=== PATIENT | female | born 1935 | race Caucasian/White ===

== ENCOUNTER 2017-03-25 20:09 | Emergency (ER) | payer MEDICARE ==
[~2017-03-25] VITALS: Ht 167.6 cm; Wt 98.0 kg
[~2017-03-25 20:09] MED LIST: AMIODARONE200 MG PO; CARVEDILOL25 MG PO; ELIQUIS5 MG PO; IRON; LANOXIN0.25 MG OR; LEVOTHYROXIN100 MCG PO; LOPRESSOR25 MG OR; LOPRESSOR50 MG OR; LORTAB5 PO; METO25TAB PO; METOPROLOL25 M1 OR; SPIRONOLACT25 MG PO; SYNTHROID50 MCG OR; SYNTHROID75 MCG PO
[2017-03-25] MEDS ORDERED: SYNTHROID125 MCG PO (20:23)
[2017-03-25] MEDS ORDERED: SERTRALINE50 MG PO (20:23)
[2017-03-25] MEDS ORDERED: AMIODARONE200 MG PO (20:27)
[2017-03-25] MEDS ORDERED: ULTRAM50 M1 PO (21:45)
[2017-03-25 21:58] VITALS: BP 161/67
== END 2017-03-25 22:18 | disposition home or self-care (01) ==
LOC: ED 20:09
DX: M25.551 Pain in right hip (principal); W19.XXXA Unspecified fall, initial encounter; Y92.009 Unspecified place in unspecified non-institutional (private) residence as the place of occurrence of the external cause

== ENCOUNTER 2020-10-05 13:52 | Inpatient (IN) | payer MEDICARE ==
[2020-10-05] VITALS (16 sets, daily range): BP systolic 73–106; BP diastolic 40–85
[~2020-10-05 13:52] MED LIST changes: +SERTRALINE50 MG PO; +SYNTHROID125 MCG PO; +ULTRAM50 M1 PO
--- NOTE | 2020-10-05 13:53 | NUR ---
PT WHEELED TO ROOM # 12 FOR BEDSIDE TRIAGE.
--- NOTE | 2020-10-05 14:04 | NUR ---
PPOC DISCUSSED WITH PATIENT, PATIENTS FRIEND REMIANS BEDSIDE WITH HER. PATIENT STATES UNDERSTANDING OF CURRENT NEED FOR Tx AND AGREES.
[2020-10-05 14:30] LABS: HEMATOCRIT 44.8 % (37.0-47.0); HEMOGLOBIN 14.1 g/dl (12.0-16.0); IMMATURE GRANULOCYTES 0.5 % (0.0-5.0); MEAN CELL VOLUME 94.7 fL CALC (80.0-100.0); MEAN CORPUSCULAR HGB 29.8 pG CALC (26.0-32.0); MEAN CORPUSCULAR HGB CONC 31.5 g/dL CAL (32.0-36.0); NEUT# 3.83 thou/uL (2.00-7.15); RED BLOOD COUNT 4.73 mill/uL (4.20-5.60); RED CELL DISTRI WIDTH 14.5 % (11.5-15.5)
--- NOTE | 2020-10-05 14:39 | NUR ---
Rt PRESENT BEDSIDE FOR ABG COLLECTION
[2020-10-05 14:42] LABS: ALBUMIN 4.4 g/dL (3.2-5.0); ALKALINE PHOSPHATASE 51 u/l (38-126); ANION GAP 14 (6-22 (CALC)); BUN 26 mg/dL (8-23); BUN/CREATININE RATIO 32 (12-20 (CALC)); CARBON DIOXIDE 25 mmol/l (22-30); CHLORIDE 104 mmol/l (95-108); CREATININE 0.8 mg/dL (0.5-1.0); GFR > 60 ML/MIN (>=60 (CALC)); GFR FOR AFR.AMER. > 60 ML/MIN (>=60 (CALC)); LIPASE 98 u/l (23-300); POTASSIUM 4.4 mmol/l (3.5-5.1); SGOT/AST 29 u/l (9-36); SODIUM 137 mmol/l (137-146); TOTAL PROTEIN 7.9 g/dL (6.3-8.2)
[2020-10-05 14:53] LABS: D-DIMER 2.36 mg/L (0.19-0.60)
[2020-10-05 14:58] LABS: ACT PARTIAL THROMBO TIME 22.9 SECONDS (20.0-32.5); INTERNATIONAL NORMALIZED RATIO 1.2 RATIO (0.7-1.3); PROTHROMBIN TIME 12.1 SECONDS (9.0-12.5)
[2020-10-05 15:17] LABS: BILIRUBIN, TOTAL 0.9 mg/dL (0.0-1.4)
[2020-10-05 17:15] LABS: URINE BILIRUBIN - DIPSTICK NEGATIVE (NEGATIVE); URINE BLOOD DIPSTICK NEGATIVE (NEGATIVE); URINE COLOR YELLOW; URINE GLUCOSE - DIPSTICK NEGATIVE (NEGATIVE); URINE KETONE NEGATIVE (NEGATIVE); URINE LEUK ESTERASE NEGATIVE (NEGATIVE); URINE PROTEIN - DIPSTICK NEGATIVE (NEG-TRACE); URINE SPECIFIC GRAVITY 1.015; URINE UROBILINOGEN - DIPSTICK 0.2 E.U./dL (0.2)
[2020-10-05 17:20] LABS: URINE NITRITE - DIPSTICK NEGATIVE (Negative)
[2020-10-05] MEDS ORDERED: MAGNESIUM250 M1 PO (18:22)
[2020-10-05] MEDS ORDERED: GABAPENTIN100 MG PO (18:23)
[2020-10-05] MEDS ORDERED: ROPINIROLE1 MG PO (18:23)
[2020-10-05] MEDS ORDERED: SINGULAIR10 MG PO (18:24)
--- NOTE | 2020-10-05 18:32 | NUR ---
PATIENT BELONGING LIST COMPLETED/COSIGNED
--- NOTE | 2020-10-05 18:36 | NUR ---
PATIENT OFFERED JUICE/CRACKS FOR SNACK PER REQUEST. PATIENT TOERATED WELL
--- NOTE | 2020-10-05 18:45 | NUR ---
REPORT CALLED TO ICU, REWEAVER NURSE AT THIS TIME
--- NOTE | 2020-10-05 18:46 | NUR ---
REPORT TO SONIA GOLDMAN-SECURITY GUARD SUPERVISOR TO TRANSPORT TO FLOOR
--- NOTE | 2020-10-05 19:08 | NUR ---
to icu via stretcher
--- NOTE | 2020-10-05 19:08 | NUR ---
84 yr old white female admitted icu5 per stretcher from er. amb few steps with assist x1 to bed. [place]. pt requires walker @ home. bed weight obtained. phototypesetting equipment monitor shows a flutter pvcs hr 130. #20 saline lock lac. history obtained per pt. oriented to room. fall precautions initiated. purewick cath in place.
--- NOTE | 2020-10-05 20:00 | NUR ---
supper meal provided per request.
--- NOTE | 2020-10-05 22:00 | NUR ---
campus monitor shows a flutter pvcs hr 72-130.
[2020-10-06] VITALS (39 sets, daily range): BP systolic 68–136; BP diastolic 47–88
--- NOTE | 2020-10-06 00:30 | NUR ---
lab here. blood drawn.
--- NOTE | 2020-10-06 02:00 | NUR ---
resting quietly. resps even & unlabored. cardic monitor shows a flutter pvcs hr 65-130.
--- NOTE | 2020-10-06 04:00 | NUR ---
awake. watching tv. no c/o voiced.
--- NOTE | 2020-10-06 06:07 | NUR ---
lab here. blood drawn.
[2020-10-06 06:44] LABS: HEMATOCRIT 42.4 % (37.0-47.0); HEMOGLOBIN 13.2 g/dl (12.0-16.0); MEAN CELL VOLUME 96.1 fL CALC (80.0-100.0); MEAN CORPUSCULAR HGB 29.9 pG CALC (26.0-32.0); MEAN CORPUSCULAR HGB CONC 31.1 g/dL CAL (32.0-36.0); RED BLOOD COUNT 4.41 mill/uL (4.20-5.60); RED CELL DISTRI WIDTH 14.4 % (11.5-15.5)
--- NOTE | 2020-10-06 07:20 | NUR ---
pt awake in bed; no apparent distress noted; pt offers no complaints; assessment completed at this time; pt alert and oriented; pt denies pain; no n/v noted; resp even and unlabored; lungs clear; skin color wnl; hr irreg; wk pedal pulses; no edema noted; aflutter/ pvc on monitor; abd soft with bs present; no bm noted per sql report writer; purewick intact and patent with clear yellow urine noted; #20 flushed to lac; no redness or edema noted at site; plan of care/am meds explained; call light within reach; will conitnue to monitor
[2020-10-06 07:22] LABS: ANION GAP 8 (6-22 (CALC)); BUN 21 mg/dL (8-23); BUN/CREATININE RATIO 29 (12-20 (CALC)); CALCULATED LDLCHOLESTEROL 100 mg/dL (62-129 (CALC)); CARBON DIOXIDE 27 mmol/l (22-30); CHLORIDE 107 mmol/l (95-108); CREATININE 0.7 mg/dL (0.5-1.0); GFR > 60 ML/MIN (>=60 (CALC)); GFR FOR AFR.AMER. > 60 ML/MIN (>=60 (CALC)); HDL CHOLESTEROL 30 mg/dL (>=40); MAGNESIUM 1.8 mg/dL (1.6-2.3); SODIUM 137 mmol/l (137-146); TOTAL CHOLESTEROL 151 mg/dl (0-199); TOTAL TRIGLYCERIDES 107 mg/dl (30-149); VLDL CHOLESTROL 21 mg/dl (0-48 (CALC))
--- NOTE | 2020-10-06 08:57 | NUR ---
Dr Camp present at bedside to assess pt and discuss plan of care
--- NOTE | 2020-10-06 10:05 | NUR ---
pt awake in bed; offers no complaint; iv intact and patent; amiodarone gtt at 1mg/min; no redness or edema noted at site; aflutter on monitor; purewick intact; call light within reach; will continue to monitor
--- NOTE | 2020-10-06 12:02 | NUR ---
resting in bed on left side; hypotension noted; bp reassessed and MD made aware; o2 sat noted at 88%; o2 per nc placed at 2L; purewick intact; aflutter on monitor; call light within reach; will conitnue to monitor
--- NOTE | 2020-10-06 13:04 | NUR ---
Dr Camp present at bedside to assess pt and discuss plan of care; pt noted sr with pvc on monitor; RT notified for EKG
--- NOTE | 2020-10-06 13:30 | NUR ---
Dr Camp informed of persistent hypotension; orders received; amiodarone gtt to continue
--- NOTE | 2020-10-06 14:15 | NUR ---
pt awake in bed; no apparent distress noted; pt offers no complaints; iv intact and patent; [place] to gravity; st/pvc on monitor; air mattress; PT present at bedside; pt deny needs; call light within reach; will continue to monitor
--- NOTE | 2020-10-06 16:15 | NUR ---
awake in bed; assisted to bsc then recliner; no apparent distress noted; pt offers no complaints; iv intact and patent; amiodarone gtt at 0.5mg/hr; o2 per nc; aflutter on monitor; call light within reach; will continue to monitor
--- NOTE | 2020-10-06 18:19 | NUR ---
awake in recliner; assisted back to bed as per request; no apparent distress noted; iv intact and patent; amiodarone gtt cont at 0.5mg/min; aflutter on monitor; call light within reach;
--- NOTE | 2020-10-06 19:15 | NUR ---
awakens easily. denies distress. o2 cont per nc. hemodialysis charge nurse shows a flutter pvcs hr 110. #22 lfa saline lock. #22 lt hand. ns infusing @ 80cchr. amiodarone gtt infusing @ 0.5mg/min. po fluids taken well. purewick cath in place. urine clear yellow. fall precautions cont.
--- NOTE | 2020-10-06 22:00 | NUR ---
eyes closed. no distress. teletypesetter monitor shows a flutter pvcs hr 110
[2020-10-07] VITALS (22 sets, daily range): BP systolic 70–121; BP diastolic 51–82
--- NOTE | 2020-10-07 00:01 | NUR ---
eyes closed. no apparent distress. dental surgery doctor shows a flutter pvcs hr 108.
--- NOTE | 2020-10-07 01:30 | NUR ---
awake. c/o insomnia & h/a. sonata 5mg po & tylenol 650mg po given per request.
--- NOTE | 2020-10-07 04:00 | NUR ---
awake. no c/o voiced. lunchroom monitor shows a flutter pvcs hr 108.
--- NOTE | 2020-10-07 05:18 | NUR ---
lab here. blood drawn.
[2020-10-07 05:43] LABS: HEMATOCRIT 43.1 % (37.0-47.0); HEMOGLOBIN 13.1 g/dl (12.0-16.0); MEAN CELL VOLUME 98.4 fL CALC (80.0-100.0); MEAN CORPUSCULAR HGB 29.9 pG CALC (26.0-32.0); MEAN CORPUSCULAR HGB CONC 30.4 g/dL CAL (32.0-36.0); RED BLOOD COUNT 4.38 mill/uL (4.20-5.60); RED CELL DISTRI WIDTH 14.6 % (11.5-15.5)
[2020-10-07 05:59] LABS: ALKALINE PHOSPHATASE 40 u/l (38-126); ANION GAP 10 (6-22 (CALC)); BILIRUBIN, TOTAL 0.6 mg/dL (0.0-1.4); BUN 20 mg/dL (8-23); BUN/CREATININE RATIO 28 (12-20 (CALC)); CARBON DIOXIDE 24 mmol/l (22-30); CHLORIDE 108 mmol/l (95-108); CREATININE 0.7 mg/dL (0.5-1.0); GFR > 60 ML/MIN (>=60 (CALC)); GFR FOR AFR.AMER. > 60 ML/MIN (>=60 (CALC)); POTASSIUM 4.2 mmol/l (3.5-5.1); SGOT/AST 24 u/l (9-36); SODIUM 138 mmol/l (137-146)
--- NOTE | 2020-10-07 06:00 | NUR ---
awakens easily. payment poster shows a flutter pvcs hr 86.
[2020-10-07 06:03] LABS: ALBUMIN 3.4 g/dL (3.2-5.0); TOTAL PROTEIN 6.3 g/dL (6.3-8.2)
--- NOTE | 2020-10-07 07:25 | NUR ---
pt resting in bed with eyes closed; no apparent distress noted; easily aroused; pt offers no complaints; assessment completed at this time; pt alert and oriented; denies pain at current; no n/v noted; resp even and unlabored; lungs clear; skin color wnl; o2 per nc at 2L; hr reg; wk pulses; no edema noted; aflutter on monitor; abd soft with bs present; no bm noted per residential mortgage underwriter; purewick intact draining clear yellow urine; #22 to lh patent with amiodarone gtt infusing at 0.5mg/hr; ns at 80cc/hr; #22 saline locked to lfa; no redness or edema noted at sites; plan of care/ am meds explained; call light within reach; will continue to monitor
--- NOTE | 2020-10-07 08:07 | NUR ---
awake in bed eating breakfast; no apparent distress noted; iv intact; amiodarone gtt cont at 0.5mg/hr; purewick intact; aflutter on monitor; call light within reach; will continue to monitor
--- NOTE | 2020-10-07 09:06 | NUR ---
Dr Camp present at bedside to assess pt and discuss plan of care
--- NOTE | 2020-10-07 10:09 | NUR ---
pt awake in bed; no apparent distress noted; pt offers no complaints; iv intact and patent; amiodarone gtt completed; purewick intact and maintained; aflutter on monitor; pt deny needs; call light within reach; will continue to monitor
--- NOTE | 2020-10-07 12:10 | NUR ---
awake in bed eating lunch; no apparent distress noted; pt offers no complaints; iv intact and patent; no redness or edema noted at site; ra; aflutter on monitor; purewick remains intact; call light within reach; will continue to monitor
--- NOTE | 2020-10-07 13:05 | NUR ---
visitor present at bedside
--- NOTE | 2020-10-07 14:00 | NUR ---
assist to bsc then to recliner; pt max assist; sob on exertion noted; pt offers no complaints; iv intact and patent; no redness or edema noted at site; aflutter on monitor; call light within reach; will continue to monitor
--- NOTE | 2020-10-07 16:01 | NUR ---
awake in recliner; pt offers no complaints; iv intact and patent; no redness or edema noted at site; aflutter on monitor; call light within reach; will continue to monitor
--- NOTE | 2020-10-07 17:58 | NUR ---
pt awake in recliner eating dinner; offers no complaints; iv intact and patent; no redness or edema noted; aflutter on monitor; call light within reach; call light within reach
--- NOTE | 2020-10-07 20:25 | NUR ---
PATIENT IS AWAKE, ORIENTED X4. COMPLAINS OF RIGHT EAR PAIN AND HEADACHE, WILL PROVIDE TYLENOL. NURSE ASSESSMENT PERFORMED. SELF REPOSITIONS. HAS A PUREWICK IN PLACE AND BSC, URINE DARK YELLOW/CLEAR. REMOVED LFA 22 G DUE TO PATIENT COMPLAINS OF PAIN UPO FLUSHING, LEFT HAND 22 INTACT, NS INFUSING AT 20 ML/HR. PATIENT BALE TO SWALLOW HER MEDICATIONS WITHOUT DIFFICULTY. ON RA, O2 SAT 95%, DOES HAVE NC 2 L/MIN AT BEDSIDE OF NEEDED, NO SOB NOTED. HR 70-80'S, ATRIAL FLUTTER, RESP 18. POC FOR TONIGHT DISCUSSED, PATIENT UNDERSTANDS AND AGREES. CALL LIGHT WITHIN REACH.
--- NOTE | 2020-10-07 22:07 | NUR ---
SONATA FOR SLEEP PROVIDED PER REQUEST, BED PAD CHANGED DUE TO SOME INCONTNENCE, PUREWICK INTACT. WARM BLANKET PROVEVED. CALL LIGHT WITHIN REACH.
[2020-10-08] VITALS (13 sets, daily range): BP systolic 72–137; BP diastolic 54–97
--- NOTE | 2020-10-08 00:24 | NUR ---
PATIENT LAYS ON HER LEFT SIDE ON 2 L/MIN NC, O2 SAT 97%. RESTS WITH EYES CLOSED.
--- NOTE | 2020-10-08 04:55 | NUR ---
PATIENT RESTS WITH EYES CLOSED. NO ACUTE DISTRESS SHOWN. REMAINS ON 2 L/MIN NC. O2 SATS 97%. CALL LIGHT WITHIN REACH.
--- NOTE | 2020-10-08 06:11 | NUR ---
PATIENT AWAKENS EASILY WHEN SPOKEN TO, ABLE TO SWALLOW HER SYNTHROID WITHOUT DIFFICULTY, NEW BAG IV NS INFUSING NOW. NO COMPLAINTS OR NEEDS AT THIS TIME. CLAL LIGHT WITHIN REACH.
--- NOTE | 2020-10-08 07:19 | NUR ---
pt awake in bed; no apparent distress noted; pt offers no complaints at this time; assessment completed; pt alert and oriented; denies pain; no n/v noted; resp even and unlabored; lungs clear; skin color wnl; o2 per nc at 2L; hr irreg; weak pedal pulses; no edema noted; aflutter on monitor; abd soft with bs present; no bm noted per creative writer; purewick intact draining clear yellow urine; #22 patent to lh with ivf infusing without complication; no redness or edema noted at site; plan of care/ am meds explained; call light within reach; will continue to monitor
--- NOTE | 2020-10-08 08:08 | NUR ---
awake in bed; offers no complaints; eating breakfast; aflutter on monitor; call light within reach; will continue to monitor
[2020-10-08 09:39] LABS: ANION GAP 7 (6-22 (CALC)); BUN 22 mg/dL (8-23); BUN/CREATININE RATIO 23 (12-20 (CALC)); CARBON DIOXIDE 27 mmol/l (22-30); CHLORIDE 107 mmol/l (95-108); CREATININE 0.9 mg/dL (0.5-1.0); GFR 59 ML/MIN (>=60 (CALC)); GFR FOR AFR.AMER. > 60 ML/MIN (>=60 (CALC)); MAGNESIUM 1.7 mg/dL (1.6-2.3); POTASSIUM 3.6 mmol/l (3.5-5.1); SODIUM 138 mmol/l (137-146)
--- NOTE | 2020-10-08 09:40 | NUR ---
Dr Camp present at bedside to assess to pt and discuss plan of care
--- NOTE | 2020-10-08 10:15 | NUR ---
pt assist to recliner per staff; exertional sob noted; ra; aflutter on monitor; iv intact and patent; call light within reach; will continue to monitor
--- NOTE | 2020-10-08 12:05 | NUR ---
awake in chair; offers no complaits; no apparent distress noted; iv intact and patent; aflutter on monitor; call light within reach; will continue to monitor
--- NOTE | 2020-10-08 14:06 | NUR ---
pt awake in bed; no apparent distress noted; ra; aflutter on monitor; iv intact and patent; call light within reach; will continue to monitor
--- NOTE | 2020-10-08 16:20 | NUR ---
pt awake in recliner; offers no complaints; iv intact and patent; no redness or edema noted at site; aflutter on monitor; call light within reach; will continue to monitor
--- NOTE | 2020-10-08 18:20 | NUR ---
pt awake in bed in recliner; no apparent distress noted; pt offers no complaints; iv intact and patent; no redness or edema noted at site; aflutter on monitor; call light within reach
--- NOTE | 2020-10-08 19:46 | NUR ---
PATIENT ASSISTED FROM BSC TO BED, DOES HAVE SLOW, UNSTEADY GAIT. DOES BECOME SOB WITH WALKING TO BED. HAD A MEDIUM/FORMED/BROWN BM MIXED WITH URINE. LAYS IN [place]'S POSITION. ALERT AND ORIENTED X4. ON RA, O2 SAT WAS 80'S WHEN WALKING TO BED AND QUICKLY RECOVERED TO 97%. NURSE ASSESSMENT PERFOMED. LEFT HAND IV INTACT, NS INFUSING AT 20 ML/HR. SELF REPOSITIONS, PULLS SELF UP. PUREWICK PLACED BACK. REQUESTS TO HAVE MEDICATIONS GIVEN AROUND 2230 TONIGHT WITH SLEEPING MEDICATION. HR 90'S TO LOW 100'S WITH EXERTION, ATRIAL FLUTTER. BP WNL. CALL LIGHT WITHIN REACH. WATER AT BEDSIDE.
--- NOTE | 2020-10-08 22:29 | NUR ---
PATIENT ABLE TO SWALLOW HER MEDIACTIONS WITHOUT DIFFICULTY, WATCHES TV, TALKS ABOUT TV SHOWS SHE WATCHES. NO ACUTE DISTRESS SHOWN. CALL LIGHT WITHIN RECH.
--- NOTE | 2020-10-08 23:08 | NUR ---
PATIWNT REQUESTS FOR NASAL CANNULA TO BE PLACED DUE TO SOB, SHE DOES HAVE WHEEZING PRESENT. PIRE WICK REPLACED DUE TO LEAKING ON TO PAD. PERICARE PROVIDED.
--- NOTE | 2020-10-08 23:17 | NUR ---
DR ROTHMAN NOTIFIED OF WHEEZING AND SOB, NEW ORDERS GIVEN FOR X1 IV DOSE OF LASIX 20 MG AND IV FLUIDS TO BE AT [facility].
--- NOTE | 2020-10-08 23:28 | NUR ---
LASIX 20 MG GIVEN, WILL CONTINUE TO MONITOR.
[2020-10-09] VITALS (22 sets, daily range): BP systolic 74–117; BP diastolic 48–78
--- NOTE | 2020-10-09 02:12 | NUR ---
PATINT RESTS WITH EYES CLOSED. NO ACUTE DISTRESS SHOWN, ON 2 L/MIN NC, O2 SAT 99%. CALL LIGHT WITHIN REACH.
--- NOTE | 2020-10-09 06:16 | NUR ---
PATIENT ABLE TO SWALLOW HER SYNTHROID THIS MORNING, LAYS ON HER LEFT SIDE. NO ACUTE DISTRESS SHOWN, NO NEEDS O COMPLAINTS AT THIS TIME. CARL LIGHT WITHIN RECH.
--- NOTE | 2020-10-09 07:10 | NUR ---
REPORT RECEIVED FROM JONES HATCH.
--- NOTE | 2020-10-09 07:32 | NUR ---
PT RESTING IN BED ON LEFT SIDE WITH EYES CLOSED AND NO SIGNS OF DISTRESS; AWAKENS TO VERBAL STIMULI; STATES, "I AM TIRED." DENIES PAIN. RESPIRATIONS EVEN AND UNLABORED ON OXYGEN 2L VIA NC; 91% SPO2; EXPIRATORY WHEEZING THROUGHOUT LUNG DUEÑAS. PURWIK CATHETER SUCTIONING CLEAR YELLOW URINE. BP 82/56 HR 104. POC REVIEWED; PT ENCOURAGED TO VERBALIZE CONCERNS; STATES UNDERSTANDING AND REMAINS SLEEPY WITH EYES CLOSED. SAFETY MEASURES IN PLACE. CALL LIGHT WITHIN REACH.
--- NOTE | 2020-10-09 09:17 | NUR ---
WALK TEST COMPLETED; PT SOB WITH EXERTION; SPO2 DECREASES TO 84% WHEN AMBULATING ON ROOM AIR. PURWIK REMOVED AND ASSISTED PT WITH CRISSY CARE; REPOSITIONED INTO BEDSIDE CHAIR WITH BLE ELEVATED; OXYGEN REPLACED AT 2L VIA NC AND SPO2 RECOVERED TO 96%. ORTHOSTATIC BLOOD PRESSURES ARE NEGATIVE.
--- NOTE | 2020-10-09 09:45 | NUR ---
ASSISTED TO BSC FOR VOID AFTER LASIX ADMINSITERED IV; PT HAD INCONTINENCE WHEN STANDING AND TURNING ONTO BSC. PURWIK APPLIED WHILE PT IS SITTING UP IN CHAIR DUE TO FREQUENCY AFTER LASIX.
--- NOTE | 2020-10-09 12:43 | NUR ---
RT AT BEDSIDE FOR BREATHING TREATMENT.
--- NOTE | 2020-10-09 14:34 | NUR ---
VISITOR AT BEDSIDE FOR 30 MINUTES. PT ASSISTED BACK INTO BED; LARGE AMOUNT OF URINE NOT SUCTIONED BY CATHETER AND UNMEASURABLE ON FAVIAN IN CHAIR; PURWIK CATHETER REPLACED AND CRISSY CARE PROVIDED. PT NOW RESTING SEMI FOWLERS WITH NEW PURWIK AND BRIEF OVER CATHETER. CALL LIGHT WITHIN REACH.
--- NOTE | 2020-10-09 15:25 | NUR ---
WHEN PT FALLS ASLEEP FOR NAP SPO2 DECREASES TO 87%; OXYGEN APPLIED AT 2L WHILE RESTING IN BED. HEART RATE IN THE 120S AND REMAINS IN AFLUTTER; SCHEDULED MEDICATIONS GIVEN INCLUDING AMIODARONE.
--- NOTE | 2020-10-09 19:30 | NUR ---
awakens easily. denies resp diff. o2 cont 2 l/m per nc. mink farmer shows a flutter pvcs hr 70. #20 lt hand saline lock. po fluids taken well. purewick cath in place urine clear yellow. turns self. fall pecautions cont.
--- NOTE | 2020-10-09 22:00 | NUR ---
watching tv. no c/o voiced. pvc monitor shows a flutter pvcs.
[2020-10-10] VITALS (22 sets, daily range): BP systolic 73–130; BP diastolic 49–89
--- NOTE | 2020-10-10 00:01 | NUR ---
sonata mg po per request for sleep.
--- NOTE | 2020-10-10 02:00 | NUR ---
resting quietly. resps even & unlabored. no apparent distress.
--- NOTE | 2020-10-10 04:15 | NUR ---
lab here. blood drawn.
[2020-10-10 05:42] LABS: HEMATOCRIT 42.5 % (37.0-47.0); HEMOGLOBIN 13.4 g/dl (12.0-16.0); IMMATURE GRANULOCYTES 0.2 % (0.0-5.0); MEAN CELL VOLUME 95.7 fL CALC (80.0-100.0); MEAN CORPUSCULAR HGB 30.2 pG CALC (26.0-32.0); MEAN CORPUSCULAR HGB CONC 31.5 g/dL CAL (32.0-36.0); NEUT# 3.89 thou/uL (2.00-7.15); RED BLOOD COUNT 4.44 mill/uL (4.20-5.60); RED CELL DISTRI WIDTH 14.2 % (11.5-15.5)
--- NOTE | 2020-10-10 06:00 | NUR ---
NO ACUTE CHANGE IN CONDITION THIS SHIFT.
[2020-10-10 06:07] LABS: ANION GAP 11 (6-22 (CALC)); BUN 26 mg/dL (8-23); BUN/CREATININE RATIO 26 (12-20 (CALC)); CARBON DIOXIDE 26 mmol/l (22-30); CHLORIDE 105 mmol/l (95-108); GFR 53 ML/MIN (>=60 (CALC)); GFR FOR AFR.AMER. > 60 ML/MIN (>=60 (CALC)); MAGNESIUM 1.6 mg/dL (1.6-2.3); POTASSIUM 3.8 mmol/l (3.5-5.1); SODIUM 138 mmol/l (137-146)
--- NOTE | 2020-10-10 07:50 | NUR ---
PT LAYING IN BED. A&O X3. NO DISTRESS NOTED. O2 VIA NC @2L IN PLACE. CURRENTLY SUSTAINING 94%. EXPIRATORY WHEEZING HEARD UPON AUSCULTATION. PUREWICK IN PLACE. CONNECTED TO SUCTION. CLEAR YELLOW URINE NOTED IN CANISTER. CURRENTLY AFIB ON MONITOR 110. ACTIVE BOWEL SOUNDS X4 QUADS. PT REPORTS TO BE FEELING BETTER THIS MORNING. CURRENTLY STILL HYPOTENSIVE. #22 LH PATENT. NO NEEDS AT THIS TIME. ASSESSMENT COMPLETED. DISCUSSED POC. CALL LIGHT WITHIN REACH.
--- NOTE | 2020-10-10 08:00 | NUR ---
DR LEE AT BEDSIDE DISCUSSING POC
--- NOTE | 2020-10-10 08:57 | NUR ---
RADIOLOGY AT BEDSIDE OBTAINING CXR
--- NOTE | 2020-10-10 09:10 | NUR ---
NEW IV INITIATED #22 RW X1 ATTEMPT. HEALTHY AND PATENT. PT TOLERATED WELL. MAGNESIUM 4GM IV INITIATED. #22 LH REMOVED DUE TO PAIN/INFILTRATION. INTACT UPON REMOVAL.
--- NOTE | 2020-10-10 09:13 | NUR ---
SCHEDULED BREATHING TX GIVEN BY THIS ORBITREAD OPERATOR. PT TOLERATED WELL.
--- NOTE | 2020-10-10 11:20 | NUR ---
PT TAKEN OFF O2 TO MONITOR FOR OXYGENATION SUPPLEMENTATION; CURRENTLY 87% VIA ROOM AIR.
--- NOTE | 2020-10-10 11:37 | NUR ---
PHYSICAL THERAPY AT BEDSIDE
--- NOTE | 2020-10-10 14:00 | NUR ---
PT SITTING IN CHAIR. NO DISTRESS NOTED. O2 REMAINS AT 2L VIA NC. CURRENTLY 84/57. CALL LIGHT WITHIN REACH.
--- NOTE | 2020-10-10 16:00 | NUR ---
PT ASSISTED TO THE BSC AND INTO BED. BP IMPORVED 114/61. 97% VIA O2 @2L. HR CURRENTLY AFIB 72. CALL LIGHT WITHIN REACH.
--- NOTE | 2020-10-10 17:57 | NUR ---
PT IN BED EATING DINNER. VSS; UPDATED PT ON POC AND D/C PLANNING. PT AGREEABLE. CALL LIGHT WITHIN REACH.
--- NOTE | 2020-10-10 17:58 | NUR ---
PT ATTEMPTING TO EAT DINNER WITH THE ASSISTANCE OF Bill LIRA CNA. LEVOPHED GTT REMAINS AT 3MCG/MIN.
--- NOTE | 2020-10-10 18:19 | NUR ---
O2 TANK DELIVERED BY MARIOLA MUNSON, PT TO BE DC TOMORROW
--- NOTE | 2020-10-10 20:00 | NUR ---
awake. watching tv. denies distress. o2 cont 2 l/m per nc. junior accountant shows a flutter pvcs hr 87. #22 rt wrist saline lock. po fluids taken well. purewick cath in place. urine clear yellow. fall precautions cont.
--- NOTE | 2020-10-10 22:30 | NUR ---
sonata 5mg po given per request for sleep.
[2020-10-11] VITALS (7 sets, daily range): BP systolic 90–113; BP diastolic 47–60
--- NOTE | 2020-10-11 00:01 | NUR ---
eyes closed. no distress. hospital monitor shows a flutter hr 74.
--- NOTE | 2020-10-11 02:00 | NUR ---
resting quietly. resps even & unlabored. no apparent distress. o2 cont.
--- NOTE | 2020-10-11 04:00 | NUR ---
eyes closed. serologist shows a flutter hr 78.
--- NOTE | 2020-10-11 06:00 | NUR ---
awake. no distress. monitor car operator shows a flutter pvcs hr 67.
--- NOTE | 2020-10-11 07:04 | NUR ---
REPORT RECEIVED FROM RECONNAISSANCE MAN NURSE, PT RESTING QUIETLY ON STRETCHER.
[2020-10-11] MEDS ORDERED: MIDODRINE5 MG PO (08:56)
[2020-10-11] MEDS ORDERED: CARVEDILOL3.125 MG PO (08:56)
[2020-10-11] MEDS ORDERED: ATROVENT H17 MCG/ACT IN (08:58)
[2020-10-11] MEDS ORDERED: CORDARONE/200 MG/TAB PO (09:02)
--- NOTE | 2020-10-11 09:51 | NUR ---
ADVISED PT OF PLAN OF DISCHARGE TODAY AND THAT WE WILL LET HER MAGNESIUM RUN AND SPEAK WITH CASE MANAGEMENT ABOUT HOME HEALTH AFTER DISCHARGE. PT STATES SHE WILL CALL A FRIEND TO PICK HER UP
--- NOTE | 2020-10-11 11:18 | NUR ---
PT SITTING UP IN RECLINER, MAGNESIUM FINISHED. PT TALKING ON TO PHONE FOR RIDE FOR DISCHARGE.
--- NOTE | 2020-10-11 12:41 | NUR ---
IV DISCONTINUED AND PT DRESSED. DISCHARGE INSTRUCTIONS GIVEN AND EXPLAINED TO PT, YELLOW HIGHLIGHTED SPECIFIC ITEMS ON MEDS AND HOME HEALTH, OXYGEN, AND SEVERAL OTHERS. PT VOICES UNDERSTANDING. PT TAKEN PER W/C TO OUTSIDE AND HELPED IN FRIENDS VEHICLE WITH OXYGEN TANK. PT THANKED US FOR HER CARE
== END 2020-10-11 13:00 | DRG 310 ==
LOC: ED 13:52 → ED-I 18:08 → ED 18:24 → ICU 18:25
PROVIDERS: Internal Medicine; Nurse Practitioner; ADMIT Internal Medicine; ATTEND Internal Medicine
DX: I48.20 Chronic atrial fibrillation, unspecified (principal); I48.92 Unspecified atrial flutter; R09.02 Hypoxemia; I95.9 Hypotension, unspecified; J44.9 Chronic obstructive pulmonary disease, unspecified; E03.9 Hypothyroidism, unspecified; G25.81 Restless legs syndrome; Z20.822 Contact with and (suspected) exposure to COVID-19
CPT/HCPCS: J0282; J3475; Q9967